=== PATIENT | male | born 2000 | race Caucasian/White ===

== ENCOUNTER 2023-12-15 17:04 | Emergency (ER) | payer SELFPAY ==
[2023-12-15 17:05] VITALS: BP 121/82; PULSE 88; RESP 16; TEMP 36.4; O2SAT 100; BMI 20.5
--- NOTE | 2023-12-15 17:24 | EX.ED.DYSGE1 ---
HPI History of Present Illness Chief Complaint: Wound Check Informant: patient Narrative Narrative: Patient presents for a tick bite on his right upper back. States he went hunting yesterday tween 2 PM and about 8 PM, he thinks he probably got it somewhere around 6 or 7 but he did not realize it at the time, he noted something sore this morning at his family look at a nasal live tick there, they pulled most of it off but there are parts that were not able to be removed so that is why he presents here to the ER. He states family told him to look like a baby. He is seen here around 1700. Last tetanus is unknown, but he thinks between 5 and 10 years ago. PFSH PFSH no medical history Allergy/AdvReac Type Severity Reaction Status Date / Time No Known Allergies Allergy Verified 12/15/23 17:05 ROS ROS ED Constitutional Constitutional ED: Denies chills or fever(s) Musculoskeletal Musculoskeletal: Reports back pain and other Details: Just soreness at the bite site ; Denies neck pain Integumentary Reports as per HPI; Denies rash Neurologic Neurologic: Denies headache(s), paresthesias or weakness EXAM Physical Exam Const Vital Signs: 12/15/23 17:05 Temperature 97.5 F L Temperature Source Temporal Pulse Rate 88 Respiratory Rate 16 Blood Pressure 121/82 H Blood Pressure Mean 95 Pulse Ox 100 Oxygen Delivery Method Room Air Positive well nourished and well developed Constitutional Narrative: Well-appearing in no distress General Appearance ED: well developed and NAD Back/Spine Back/Spine Narrative: Small area on the right upper back, there is barely a piece of residual tick parts present. No significant rash. No bleeding or discharge. Extremity normal to inspection Neuro oriented x3, CN's II-XII intact bilaterally, no sensory deficits noted and gait normal Motor Exam: strength 5/5 throughout MDM MDM MDM Narrative Medical decision making narrative: I remove the rest of the mouthparts from the patient. He is getting prophylactic doxycycline 200 mg since this could have been an immature tick, they can transmit Lyme in less than 36 hours. Patient was advised to screen his body for more ticks. He does not want to get a tetanus shot right now, he states he will discuss with his doctor concerning his last 1 before he gets an update. Procedures Other Procedures Procedure(s): Foreign body removal right upper back: After verbal consent from the patient, I locally prepped the area with chlorhexidine, and using forceps was able to remove the residual embedded mouthparts from the patient's back with no residual foreign material seen. No complications, tolerated well. No bleeding. Dressed with bacitracin. Discharge Plan Triage Chief Complaint: Wound Check ED Provider: Marc Dickey Dx/Rx/DC Orders Clinical Impression: Tick bite of back Instructions: ED Tick Bite, Antibiotic Treatment Primary Care Provider: NOT,DEFINED Referrals: Doctor,Your [Non-Staff] - As Needed Activity Restrictions/Additional Instructions: Check with your doctors office regarding your last tetanus shot. You should have an update if it was more than 5 years ago, and definitely if it was more than 10 years ago. Print Language: Croatian Disposition Disposition: Home, Self Care
[2023-12-15] MEDS: Doxycycline 100 MG CAPSULE 200 MG PO (17:31)
--- OUTSIDE RECORDS SUMMARY | 2023-12-15 17:33 | XMS RPT_ITS | CCD ---
Author Organization [facility] Care Team Providers Care Product Marketing Consultant Name Role Phone MESHA ROSE Primary Care Unavailable DIDURROSANGELA DO Primary Care Unavailable DIDURROSANGELA DO Attending Unavailable ROSANGELA AJ DO Admitting Unavailable EUGENIO ROBLES MD Admitting Unavailable EUGENIO ROBLES MD Primary Care Unavailable EUGENIO ROBLES MD Attending Unavailable LEMASTERSLACEY Admitting Unavailable LEMASTERSLACEY Primary Care Unavailable LEMASTERS, LACEY D Attending Unavailable CSERNYIK, MONTY DO Admitting Unavailable CSERNYIK, MONTY DO Primary Care Unavailable CSERNYIK, MONTY DO Attending Unavailable RODRIGUEZ, ANGEL C Attending Unavailable RODRIGUEZ, ANGEL C Admitting Unavailable RODRIGUEZ, ANGEL C Primary Care Unavailable Problems Active Problems Problem Classification Problem Date Documented Da te Episodic/Chronic E Codes: Unspecified (1 source) Activity, rough housing and horseplay; Translations: [Activity, rough housing and horseplay] Onset: 08-01-2023 Episodic Other non-traumatic joint disorders (2 sources) Pain in right knee; Translations: [Pain in right knee] Onset: 08-01-2023 Episodic Sprains and strains (2 sources) Other sprain of right shoulder joint, initial encounter; Translations: [Sprain of unspecified site of right knee, initial encounter] Onset: 08-01-2023 Episodic Past or Other Problems Problem Classification Problem Date Documented Da te Episodic/Chronic E Codes: Other specified and classifiable (1 source) Caught, crushed, jammed, or pinched between moving objects, initial encounter; Translations: [Caught, crushed, jammed, or pinched between moving objects, initial encounter] Onset: 11-03-2022 Episodic Fracture of upper limb (1 source) Displaced fracture of distal phalanx of right middle finger, initial encounter for open fracture; Translations: [Displaced fracture of distal phalanx of right middle finger, initial encounter for open fracture] Onset: 11-03-2022 Episodic Skin and subcutaneous tissue infections (1 source) Other specified local infections of the skin and subcutaneous tissue; Translations: [Other specified local infections of the skin and subcutaneous tissue] Onset: 11-03-2022 Episodic Superficial injury; contusion (3 sources) Contusion of right middle finger with damage to nail, initial encounter; Translations: [Contusion of right middle finger with damage to nail, initial encounter] Onset: 11-03-2022 Episodic Results Test Name Value Interpretation Reference Range Facility KNEE COMPLETE RT MIN 4 VIEWS on 08-02-2023 KNEE COMPLETE RT MIN 4 VIEWS [place] [id number] Patient: MARCELA ONEIL Phone#: : [phone] Age: 23 Gender: M Pt. Type: ER Account: [id number] Location: 05 Ordering: ROSANGELA AJ Exam Date: 08/02/2023/0:39 Family Phys: Charge Code: [id number] Physician: Lenawee Order #: [id number] Dose#: PROCEDURE: X-RAY KNEE RT COMPLETE 4 VIEWS COMPARISON: None. INDICATIONS: Trauma. FINDINGS: BONES: Normal. No significant arthropathy or acute abnormality. SOFT TISSUES: Negative. No visible soft tissue swelling. EFFUSION: None visible. OTHER: Negative. CONCLUSION: No acute disease. Dictated by: Isa Estrada MD on 08/02/2023 at 9:25 Approved by: Isa Estrada MD on 08/02/2023 at 9:27 Normal [facility] SHOULDER COMPLETE RTon 08-01 SHOULDER COMPLETE RT [place] [address] Patient: AMRCELA ONEIL Phone#: : 2000 Age: 23 Gender: M Pt. Type: ER Account: [id number] Location: 052 Ordering: ROSANGELA AJ Exam Date: 08/02/2023/0:30 Family Phys: Charge Code: [id number] Physician: Lenawee Order #: [id number] Dose#: PROCEDURE: X-RAY SHOULDER COMPLETE RT MIN 2 VIEWS COMPARISON: None. INDICATIONS: Trauma. FINDINGS: BONES: Normal. No significant arthropathy or acute abnormality. SOFT TISSUES: Negative. No visible soft tissue swelling. EFFUSION: None visible. OTHER: Negative. CONCLUSION: No acute disease. Dictated by: Isa Estrada MD on 08/02/2023 at 9:24 Approved by: Isa Estrada MD on 08/02/2023 at 9:24 Normal [facility] EMERGENCY REPORTon 4 EMERGENCY REPORT [facility] EMERGENCY ROOM REPORT NAME ACCOUNT SEX AGE ADMIT DISCHARGE PT MED. RECORD# NUMBER DATE DATE TYPE CLARICE [id number] Juan 02/28/23 02/28/23 3 MARCELA Martinez [id number] ROOM: ER DATE OF : 2000 DICTATING PHYSICIAN: Angel Rodriguez CHIEF COMPLAINT: Finger pain. HISTORY OF PRESENT ILLNESS: The patient states in October he slammed his right middle finger in a door. He was seen in the ED and diagnosed with a fractured distal phalanx. He had a splint placed. He also had a laceration at that time. He states that he continues to have pain to the tip of the finger, and it is difficult to move his finger. He has not had fever or chills. No new injury or trauma. PAST MEDICAL HISTORY: Past medical history is negative for chronic medical problems. PAST SURGICAL HISTORY: No previous surgeries. MEDICATIONS: He takes no medications. ALLERGIES: No allergies. PHYSICAL EXAMINATION: GENERAL: This is a 23-year-old thin male alert, appropriate, and does not appear toxic. SKIN: His skin is pink, warm, and dry. EXTREMITIES: Exam is focused to the right hand. The patient has generally very thin hands and fingers. There is an appearance of a healed laceration to the distal aspect of the right third finger and nail bed, but there is no redness, ecchymosis, or drainage of any type. His finger is mildly flexed along the PIP and DIP joints. He is able to flex it fairly well, but is unable to extend it along these joints, and when I tried to extend it, he complains of moderate pain. Good neurovascular exam. No tenderness at the MCP or any other areas of the hand and fingers. DIAGNOSTIC DATA: I did repeat an x-ray, which shows a healed fracture to the distal phalanx. EMERGENCY DEPARTMENT COURSE AND TREATMENT: There is no evidence of any acute infection or other injury. DIAGNOSIS: Persistent right finger pain and limited range of motion. PLAN/DISPOSITION: He is referred to orthopedics for further evaluation and Page 1 of 2 MARCELA ONEIL Emergency Room Report MARCELA ONEIL : 2000 management. Dictated By: Angel Rodriguez MD 02/28/23 13:14 JOB #: [id number] Transcribed By: charly 02/28/23 15:11 Electronically signed by: KEMAR Rodriguez M.D. 03/05/23 07:05 Page 2 of 2 MARCELA ONEIL Emergency Room Report Normal [facility] FINGERS RTon 02-28-2023 FINGERS RT [place] [address] Patient: MARCELA ONEIL. Phone#: : 2000 Age: 23 Gender: M Pt. Type: ER Account: [id number] Location: [facility] Ordering: ANGEL RODRIGUEZ Exam Date: 02/28/2023/10:12 Family Phys: Charge Code: [id number] Physician: Lenawee Order #: [id number] Dose#: PROCEDURE: X-RAY FINGER RT MIN 2 VIEWS COMPARISON: [facility], XR, FINGERS RT, 11/03/2022, 13:27. INDICATIONS: Pain. FINDINGS: BONES: The previously identified fracture of the 3rd distal phalanx is no longer present. There is posttraumatic irregularity of the 3rd distal phalanx, consistent with posttraumatic change. SOFT TISSUES: There is irregularity at the nailbed of the 3rd distal digit, best seen on lateral view. EFFUSION: None visible. OTHER: Negative. CONCLUSION: 1. Third distal digit posttraumatic change. There has been interval healing of the fracture line. 2. Irregularity of nailbed of the 3rd distal digit Dictated by: Elissa Pino MD on 02/28/2023 at 10:59 Approved by: Elissa Pino MD on 02/28/2023 at 11:03 [facility] EMERGENCY REPORTon 3 EMERGENCY REPORT [facility] EMERGENCY ROOM REPORT NAME ACCOUNT SEX AGE ADMIT DISCHARGE PT MED. RECORD# NUMBER DATE DATE RICH ONEIL [id number] Juan 11/03/22 11/03/22 Bc Martinez [id number] ROOM: ER DATE OF : 2000 DICTATING PHYSICIAN: Monty Rangel CHIEF COMPLAINT/HISTORY OF PRESENT ILLNESS: This is a 22-year-old male here with right 3rd finger injury. He says he injured it 3 or 4 weeks ago when he slammed it in the door. He says they called 911. The 911 came out and they wrapped up his finger and he did not follow up. He says his last tetanus is unknown. He is right hand dominant. He denies any fever or chills. He denies any other associated injury or complaint other than the right third fingertip. PAST MEDICAL HISTORY: Denied. PAST SURGICAL HISTORY: Denied. ALLERGIES: Patient denies any medication allergies. FAMILY HISTORY: Denied. SOCIAL HISTORY: No tobacco use. No alcohol use. No drug use. Immunizations are not up-to-date. He is uncertain when his last tetanus was. We will update that today. REVIEW OF SYSTEMS: A complete review of systems is otherwise negative except as noted above. PHYSICAL EXAMINATION: VITAL SIGNS: Stable. He is afebrile. He is nontoxic. HEART: Regular rate and rhythm. LUNGS: Clear to auscultation. ABDOMEN: Soft, nontender. EXTREMITIES: Right upper extremity reveals long bones to be atraumatic. He has a crush injury to the distal fingertip of the right 3rd digit. There was a dense subungual hematoma of the right third fingernail. There is a healing laceration over the volar aspect of the right third fingertip. He could flex and extend the finger. Sensation is grossly intact. There was no pain on palpation of the middle phalanx or proximal phalanx of the 3rd digit. DIAGNOSTIC DATA: X-ray examination of the right third finger reveals a tuft fracture of the distal 3rd fingertip. EMERGENCY DEPARTMENT COURSE AND TREATMENT: I did share x-rays and pictures of the wound with Dr[facility] via texting. The nail of the right 3rd finger will be removed secondary to the subungual hematoma. The finger was Page 1 of 2 MARCELA ONEIL Emergency Room Report MARCELA ONEIL : 2000 anesthetized with 1% lidocaine locally at the base of the finger. The fingernail was then removed without difficulty. There is no fingernail bed laceration that I can appreciate. There is a healing laceration over the volar aspect of the distal right 3rd finger. There is no pus draining from the wound. We will not repair that at this time as this wound is 3 to 4 weeks old. A Xeroform dressing is applied to the right 3rd fingertip and a splint is placed. The patient is put on both Keflex 500 mg q.i.d. x10 days and Bactrim DS 1 p.o. b.i.d. x10 days. Ibuprofen as needed for pain. Patient is instructed to call and follow up with [facility], Dr. Oviedo later this week. He is instructed to call Saturday for an appointment. Patient verbalized understanding. The patient's tetanus was updated today with a Tdap. DIAGNOSES: 1. Open fracture right 3rd fingertip. 2. Nail removal from 3rd finger. 3. Subungual hematoma. 4. Possible right 3rd fingertip infection. PLAN/DISPOSITION: Patient is discharged home in improved and stable condition. Dictated By: Monty Rangel DO 11/03/22 16:45 JOB #: [id number] Transcribed By: inderjit 11/04/22 12:38 Electronically signed by: Dr. Monty Rangel DO 11/29/22 19:35 Page 2 of 2 MARCELA ONEIL Emergency Room Report Normal [facility] EMERGENCY REPORTon 3 EMERGENCY REPORT [facility] EMERGENCY ROOM REPORT NAME ACCOUNT SEX AGE ADMIT DISCHARGE PT MED. RECORD# NUMBER DATE DATE TYPE CLARICE [id number] Juan 22 11/03/22 11/03/22 3 MARCELA Martinez [id number] ROOM: ER DATE OF : 2000 DICTATING PHYSICIAN: Neri Urbina ADDENDUM: DIAGNOSTIC DATA: The patient had an x-ray discrepancy suspicious for osteomyelitis involving the tuft of the long finger. PLAN/DISPOSITION: I did discuss this with Dr. Oviedo because according to the note with Dr. Rangel they did talk. The patient was placed on antibiotics of Keflex and Bactrim. He is going to see Dr. Oviedo this week. I also talked to the patient about this, and the patient has not gotten his antibiotics filled. He said he is hopefully going to get them filled tomorrow. He did talk to the pharmacist. He is going to call Dr. Oviedo for an appointment. In discussion with Dr. Oviedo, it sounds like he has a very severe infection of the finger and may lose the finger. The patient was strongly encouraged to get his antibiotics filled, and followup with Dr. Oviedo. Dictated By: Neri Urbina DO 11/05/22 19:52 JOB #: [id number] Transcribed By: am 11/06/22 07:37 Electronically signed by: KEMAR Urbina DO 11/11/22 17:39 Page 1 of 1 MARCELA ONEIL Emergency Room Report Normal [facility] FINGERS RTon 11-03-2022 FINGERS RT [place] [address] Patient: CLARICE MARCELA Juan. Phone#: : 2000 Age: 22 Gender: M Pt. Type: ER Account: [id number] Location: [facility] Ordering: MONTY RANGEL Exam Date: 11/03/2022/13:27 Family Phys: Charge Code: [id number] Physician: Lenawee Order #: [id number] Dose#: PROCEDURE: X-RAY FINGER RT MIN 2 VIEWS COMPARISON: None. INDICATIONS: Injury FINDINGS: BONES: There is cortical disruption of the distal tuft the long finger. Erosive changes are present laterally at the tuft suspicious for osteomyelitis. There does appear to be avulsion at the tuft. SOFT TISSUES: Negative. No visible soft tissue swelling. EFFUSION: None visible. OTHER: Negative. CONCLUSION: 1. Findings suspicious for osteomyelitis involving the tuft of the long finger. Dictated by: Isa Estrada MD on 11/04/2022 at 8:42 Approved by: Isa Estrada MD on 11/04/2022 at 8:49 Normal [facility] EMERGENCY REPORTon 3 EMERGENCY REPORT [facility] EMERGENCY ROOM REPORT NAME ACCOUNT SEX AGE ADMIT DISCHARGE PT MED. RECORD# NUMBER DATE DATE RICH ONEIL [id number] Juan 09/14/22 09/14/22 3 MARCELA Martinez [id number] ROOM: ER DATE OF : 2000 DICTATING PHYSICIAN: Bashir Isabel CHIEF COMPLAINT/HISTORY OF PRESENT ILLNESS: This is a 22-year-old male with no family doctor, who comes to the emergency room. He is seen in room #5 for neck pain on the right side. He states when he turns his nose to the left, he does not have any pain. When he turns his nose to the right, he has pain. He denies any trauma. He woke up with this. It is insidious in onset, five days. He has taken no medicines for this. He has never had this in the past. He has no radiation to his arms, no sore throat, no cough, no congestion, no nausea, vomiting or diarrhea, no abdominal pain, eating well, no urinary symptoms. He states he is not a diabetic. He denies any cardiac disease. He is seen in the presence of his . SOCIAL HISTORY: He does not smoke. No alcohol use. PHYSICAL EXAMINATION: He appears in no distress, but he has palpable discomfort to the right paravertebral muscles of the cervical spine. His temperature is 98, 112/72 blood pressure, 97% saturations on room air, 80 pulse, 16 respirations. Head is normocephalic. Neck: Supple. Chin to chest is normal. It is uncomfortable for him to turn his nose to the right. He has tenderness and a little spasm in the muscle along the paravertebral muscles, particularly about the level of C2-C3. There is no rash. Pharynx is symmetrical without any stridor, hoarseness or injection. He denies a sore throat. Pupils are equal, round, reactive, 3 mm. Tympanic membranes, canals, pinnae normal. He has no nystagmus. He has no anterior, posterior or supraclavicular nodes. Lungs: Clear. There is no expiratory wheeze, rales, paradoxical chest motion. He ventilates equal bilaterally. Heart: Rate and rhythm are regular without gallop. PMI left chest. Good radial and dorsalis pedis pulses. Abdomen: Soft, nontender. Bowel sounds are normal. Skin: Warm and dry. He is not an overweight individual. DIAGNOSTIC DATA: C-spine x-ray read by the emergency room physician shows no fracture, dislocation, or bony abnormality, no lytic areas. Alignment is well-maintained. EMERGENCY DEPARTMENT COURSE AND TREATMENT: I told him we would obtain x-rays, give him some medications and see how he does here. So we gave him Tramadol 50 p.o., ketorolac 60 mg IM, prednisone 40 p.o. With the medications, he actually felt better. DIAGNOSIS: Torticollis, cervical strain, right. Page 1 of 2 MARCELA ONEIL Emergency Room Report MARCELA ONEIL : 2000 PLAN/DISPOSITION: He left work today to come here, so we gave him a work excuse for today, and then I put him on Flexeril, gave him a couple Tramadol to go. I told him to use ibuprofen 800, Flexeril for home, steroids for home, and consider help from a chiropractor. I also gave him the [facility] for family doctor follow-up. Return as needed. He is ambulatory at discharge and appears to be improved. Dictated By: Bashir Isabel DO 09/15/22 04:34 JOB #: [id number] Transcribed By: ew 09/15/22 20:46 Electronically signed by: E-SIGN BASHIR ISABEL DO 09/28/22 18:01 Page 2 of 2 MARCELA ONEIL Emergency Room Report Normal [facility] CERVICAL SP COMPLETE, 4 OR 5 VIEWSon 09-14-2022 CERVICAL SP COMPLETE, 4 OR 5 VIEWS [place] [address] Patient: MARCELA ONEIL. Phone#: : 2000 Age: 22 Gender: M Pt. Type: ER Account: [id number] Location: [facility] Ordering: LACEY ALEJO Exam Date: 09/14/2022/19:44 Family Phys: Charge Code: [id number] Physician: Lenawee Order #: [id number] Dose#: PROCEDURE: X-RAY CERVICAL SPINE W/ AP, LATERAL, ODONTOID, AND OLBIQUES VIEWS COMPARISON: None. INDICATIONS: Mobility changes. FINDINGS: BONES: Normal. No significant spondylosis, scoliosis, fracture, or visible bony lesion. DISC SPACES: Normal. No significant disc height narrowing, subluxation, or endplate abnormality. PARASPINOUS: Negative. No paraspinous abnormality is seen. OTHER: Negative. CONCLUSION: No acute disease. Dictated by: Isa Estrada MD on 09/16/2022 at 23:43 Approved by: Isa Estrada MD on 09/16/2022 at 23:44 Normal [facility] EKGon 11-06-2021 Electrocardiogram Ventricular Rate : 61 BPM Atrial Rate : 61 BPM P-R Interval : 180 ms QRS Duration : 98 ms Q-T Interval : 388 ms QTC Calculation(Bazett) : 390 ms Calculated P [place] : 19 degrees Calculated R [place] : 55 degrees Calculated T [place] : 65 degrees NORMAL SINUS RHYTHM NONSPECIFIC ST AND T WAVE ABNORMALITY ABNORMAL ECG confirmed Confirmed by DO REID RYAN ([id number]), advertising editor ISHAN MONTEJO ([id number]) on 11/06/2021 3:05:12 PM NAME : MARCELA ONEIL PID : [id number] : 2000 Gender : Male Race : Unknown ORD : Procedure Date : Nov 05 2021 22:14:56 Edit Date : Nov 06 2021 15:05:13 Diagnosis: NORMAL SINUS RHYTHM NONSPECIFIC ST AND T WAVE ABNORMALITY ABNORMAL ECG confirmed Confirmed by DO REID RYAN ([id number]), advertising editor ISHAN MONTEJO ([id number]) on 11/06/2021 3:05:12 PM Test Reason : Location : 80 : EMERG Overread By : DO REID RYAN Edited By : ISHAN MONTEJO Referred By : , [facility] : [facility] Office Visit (CAW[facility]) MARCELA ONEIL ([id number]) [birth year] M Date Time Provider Department 5/28/19 9:00 AM [facility] During your visit today, we recorded the following information about you: SAMAN Hardin 07/15/2018 9:44 AM Signed Preliminary report complete; results under cardiac tab. SAMAN Hardin Referring Provider: MESHA ROSE [[id number]] Allergies As of Date: 07/15/2018 (No Known Allergies) Date Reviewed: 06/27/2018 Reviewed by: Mesha Rose - Fully Assessed Reason for Visit: Chest Pain [21] Primary Visit Diagnosis:Chest pain, unspecified type [R07.9] Prescriptions as of 07/15/2018 Sig: PERFLUTREN LIPID MICROSPHERES* Inject 1.3 mL intravenously a* CLONIDINE HCL 0.2 MG TABLET Take 1/2-1 tab 1 hr before be* Problem List As Of Date 07/15/2018 Noted Resolved ADD (attention deficit disorder) [F98.8] More... Well adolescent visit [Z00.129] INVALID FOR* More... Sleep disturbance [G47.9] INVALID FOR* Incomplete RBBB [I45.10] INVALID FOR* Encounter Status:Closed by Romel KEARNS on 07/15/18 [facility] PROGRESSon 07-15-2018 Protein mass conc HNO ID: [id number] Author: Romel Mcarthur (Rcep) Service: ? Author Type: Jira Administrator Type: Progress Notes Filed: 07/15/2018 9:44 AM Note Text: Preliminary report complete; results under cardiac tab. SAMAN Hadrin [facility] CNCOon 06-27-2018 CNCO Letter Text [facility] CNOVon 06-27-2018 CNOV Office Visit (FAMPWS) MARCELA ONEIL ([id number]) [birth year] M Date Time Provider Department 06/27/18 4:00 PM MESHA ROSE During your visit today, we recorded the following information about you: Pulse Respiration Blood pressure Weight 56/minute 12/minute 94/62 62.6 kg Mesha Rose MD 06/27/2018 10:51 PM Signed Chief Complaint Patient presents with: Chest Pain: intermediate HPI Marcela Oneil is a 18 year old male who presents here today for above complaint. Received TE the other day from mother: Mother calling for Pt who has been having intermittent CP for several months and seen in the ED 2 times. Pt was told probably anxiety. Last episode was several days ago. Pt wondering if there is some medications that would help prevent these attacks. Conferenced to (Crystal) for scheduling with PCP. . Patient with no know Hx of anxiety or depression. Mom with Hx of anxiety. Only family Hx of heart disease was MGM around the age of 50. Patient not a smoker. Chest pain is typically on the left chest wall. Will come on during rest or activity. If stops what he is doing it does not always make it better. No shortness of breath, no radiation of pain, diaphoresis or nausea. Heart rate is increased sometimes. No syncope. When he gets the chest pain he can not say he feels more anxious or more stressed. No sever feelings of doom. Has had palpitations when he was not having chest pain. Past medical history, appointments, medications, allergies reviewed. No changes. ROS: Pertinent positives/ negatives: see HPI PHYSICAL EXAMINATION BP 94/62 Pulse (!) 56 Resp 12 Wt 62.6 kg (138 lb) General appearance: Well appearing, alert, in no acute distress, well-hydrated, well nourished. Eyes: Anicteric sclera. Pupils are equally round and reactive to light. Extraocular movements are intact. Neck: Supple, no adenopathy; thyroid symmetric, normal size, no bruits Lungs: lungs clear to auscultation. No wheezing, rhonchi, rales Heart: RRR without murmur, gallop, or rubs. No ectopy Abdomen: Normal abdominal exam, Abdomen soft, non-tender. Bowel sounds normal. No masses, organomegaly Peripheral pulses: Normal Neuro: Gait normal. No gross deficits. Ext: no leg edema Data reviewed In Office EKG showed NSR with incomplete RBBB without ST or T wave changes Bonny's Anxiety score: 29 (boarderline anxiety) Cabrera's depression score: 10 (normal) A/P ASSESSMENT/PLAN: 1. Atypical chest pain - ICD9: 786.59, ICD10: R07.89 (primary diagnosis) Check - ECHO - PERFLUTREN LIPID MICROSPHERES 1.1 MG/ML INTRAVENOUS SUSPENSION - STRESS REGULAR W/TREAD 2. Incomplete RBBB - ICD9: 426.4, ICD10: I45.10 Check - ECHO - PERFLUTREN LIPID MICROSPHERES 1.1 MG/ML INTRAVENOUS SUSPENSION - STRESS REGULAR W/TREAD If above w/u negative will have Marcela start Zoloft at 25 mg ad ay and f/u in 8 weeks to see how he is doing. If palpitations persist may need event monitor. Mesha Rose MD Referring Provider: SELF [[id number]] Allergies As of Date: 06/27/2018 (No Known Allergies) Date Reviewed: 06/27/2018 Reviewed by: Mesha Rose - Fully Assessed Reason for Visit: Chest Pain [21] Cmt: intermediate Primary Visit Diagnosis:Atypical chest pain [R07.89] Other Visit Diagnosis:Incomplete RBBB [I45.10] Order(s):ECG COMPLETE [ECG01] Order #: [id number] FUTURE ECHO [743719] Order #: [id number]: 1 FUTURE perflutren lipid microspheres (DEFINITY) 1.1 mg/mL injection (to be provided with echo procedure)Inject 1.3 mL intravenously as directed.Disp: 1.3 mLRfl: 0 STRESS REGULAR W/TREAD [8413840] Order #: [id number]: 1 Prescriptions as of 06/27/2018 Sig: CLONIDINE HCL 0.2 MG TABLET Take 1/2-1 tab 1 hr before be* PERFLUTREN LIPID MICROSPHERES* Inject 1.3 mL intravenously a* Problem List As Of Date 06/27/2018 Noted Resolved ADD (attention deficit disorder) [F98.8] More... Well adolescent visit [Z00.129] INVALID FOR* More... Sleep disturbance [G47.9] INVALID FOR* Incomplete RBBB [I45.10] INVALID FOR* Prescriptions ordered this encounter Disp Refills Start End PERFLUTREN LIPID MICROSPHERES 1.1 MG* 1.3 * 0 06/27/2018 06/27/2019 Class: In Office Route: INTRAVENOUS Sig: Inject 1.3 mL intravenously as directed. Disposition: Return if symptoms worsen or fail to improve. Follow-up and Disposition History Recorded Encounter Status:Closed by MESHA ROSE on 06/27/18 Normal [facility] ECG COMPLETEon 06-27-2018 ECG COMPLETE NAME : MARCELA ONEIL PID : [id number] : 2000 Gender : Male Race : ORD : [id number] Procedure Date : Jun 27 2018 16:30:14 Edit Date : Jul 22 2018 16:03:14 Diagnosis:NORMAL SINUS RHYTHM INCOMPLETE RIGHT BUNDLE BRANCH BLOCK BORDERLINE ECG Confirmed by MD JACOBS GREGORY () on 07/22/2018 4:02:58 PM Ventricular Rate : 71 BPM Atrial Rate : 71 BPM P-R Interval : 152 ms QRS Duration : 104 ms Q-T Interval : 368 ms QTC Calculation(Bezet) : 399 ms P [place] : 36 degrees R [place] : 36 degrees T [place] : 58 degrees Test Reason : Location : 185 : [facility] Overread By : MD JACOBS GREGORY Edited By : MD JACOBS GREGORY Referred By : MESHA ROSE Acquired by : Olesya CUELLAR [facility] PROGRESSon 06-27-2018 Protein mass conc HNO ID: [id number] Author: Mesha Rose Service: ? Author Type: Physician Type: Progress Notes Filed: 06/27/2018 10:51 PM Note Text: Chief Complaint Patient presents with: Chest Pain: intermediate HPI Marcela Oneil is a 18 year old male who presents here today for above complaint. Received TE the other day from mother: Mother calling for Pt who has been having intermittent CP for several months and seen in the ED 2 times. Pt was told probably anxiety. Last episode was several days ago. Pt wondering if there is some medications that would help prevent these attacks. Conferenced to (Crystal) for scheduling with PCP. . Patient with no know Hx of anxiety or depression. Mom with Hx of anxiety. Only family Hx of heart disease was MGM around the age of 50. Patient not a smoker. Chest pain is typically on the left chest wall. Will come on during rest or activity. If stops what he is doing it does not always make it better. No shortness of breath, no radiation of pain, diaphoresis or nausea. Heart rate is increased sometimes. No syncope. When he gets the chest pain he can not say he feels more anxious or more stressed. No sever feelings of doom. Has had palpitations when he was not having chest pain. Past medical history, appointments, medications, allergies reviewed. No changes. ROS: Pertinent positives/ negatives: see HPI PHYSICAL EXAMINATION BP 94/62 Pulse (!) 56 Resp 12 Wt 62.6 kg (138 lb) General appearance: Well appearing, alert, in no acute distress, well-hydrated, well nourished. Eyes: Anicteric sclera. Pupils are equally round and reactive to light. Extraocular movements are intact. Neck: Supple, no adenopathy; thyroid symmetric, normal size, no bruits Lungs: lungs clear to auscultation. No wheezing, rhonchi, rales Heart: RRR without murmur, gallop, or rubs. No ectopy Abdomen: Normal abdominal exam, Abdomen soft, non-tender. Bowel sounds normal. No masses, organomegaly Peripheral pulses: Normal Neuro: Gait normal. No gross deficits. Ext: no leg edema Data reviewed In Office EKG showed NSR with incomplete RBBB without ST or T wave changes Bonny's Anxiety score: 29 (boarderline anxiety) Cabrera's depression score: 10 (normal) A/P ASSESSMENT/PLAN: 1. Atypical chest pain - ICD9: 786.59, ICD10: R07.89 (primary diagnosis) Check - ECHO - PERFLUTREN LIPID MICROSPHERES 1.1 MG/ML INTRAVENOUS SUSPENSION - STRESS REGULAR W/TREAD 2. Incomplete RBBB - ICD9: 426.4, ICD10: I45.10 Check - ECHO - PERFLUTREN LIPID MICROSPHERES 1.1 MG/ML INTRAVENOUS SUSPENSION - STRESS REGULAR W/TREAD If above w/u negative will have Marcela start Zoloft at 25 mg ad ay and f/u in 8 weeks to see how he is doing. If palpitations persist may need event monitor. Mesha Rose MD Normal [facility] CNOVon 04-08-2018 CNOV Office Visit (FAMPWS) MARCELA ONEIL ([id number]) 1 M Date Time Provider Department 04/08/18 1:40 PM MESHA ROSE During your visit today, we recorded the following information about you: Pulse Respiration Blood pressure Weight 68/minute 14/minute 104/70 62.6 kg Mesha Rose MD 04/08/2018 2:04 PM Signed Chief Complaint Patient presents with: Recheck: 5 month sleep disturbance HPI Marcela Oneil is a 18 year old male who presents here today for Above Complaints.. Patient with Hx of sleep disturbance and ADD. Still not having issues with his ADD. Was doing fine with the clonidine 0.1 mg tab before bed up until 2-3 weeks ago and now he's back to where he just can't fall asleep. No new life stressors. Denies excessive worrying and no feeling of being depressed. Past medical history, appointments, medications, allergies reviewed. Previous Medical History PAST MEDICAL HISTORY Diagnosis Date - ADD (attention deficit disorder) - Sleep disturbance 10/05/2017 Previous Surgical History PAST SURGICAL HISTORY Procedure Laterality Date - NONE Family History FAMILY HISTORY Problem Relation Age of Onset - Hypertension Maternal Grandmother - Coronary Artery Disease Maternal Grandmother 50 Patient Allergies ALLERGIES No Known Allergies Current Medications Current Outpatient Prescriptions on File Prior to Visit: cloNIDine HCl (CATAPRES) 0.1 mg tablet Take 1/2-1 tab 1 hr before bed each night. No current facility-administere d medications on file prior to visit. Social History Social History Marital status: Single Spouse name: Years of education: Number of children: Social History Main Topics Smoking status: Never Smoker Smokeless tobacco: Never Used Alcohol use: No Drug use: No Sexual activity: No Review of Symptoms REVIEW OF SYSTEMS See HPI EXAM: BP 104/70 Pulse 68 Resp 14 Wt 62.6 kg (138 lb) Last 6 Encounter BP Readings: Date: BP: 04/08/2018 104/70 11/04/2017 110/72 10/05/2017 108/74 06/03/2017 84/62 07/27/2016 112/70 General Appearance: Well appearing, alert, in no acute distress, well-hydrated, well nourished.. Eyes: Anicteric sclera. Pupils are equally round. Extraocular movements are intact. . Neck: Supple, no adenopathy; thyroid symmetric, normal size, no bruits. Lungs: lungs clear to auscultation. No wheezing, rhonchi, rales. Heart: RRR without murmur, gallop, or rubs. No ectopy. Abdomen: Normal abdominal exam, Abdomen soft, non-tender. Bowel sounds normal. No masses, organomegaly. Psych: Normal mood and affect. Makes eye contact. Health Maintenance List DTAP,TDAP,TD(1 - Tdap) due on 01/20/2007 HPV VACCINE(1 - Male 3-dose series) due on 01/20/2011 PHQ-A due on 07/27/2017 INFLUENZA Completed MENINGOCOCCAL CONJUGATE Completed Data reviewed A/P ASSESSMENT/PLAN: 1. Attention deficit disorder, unspecified hyperactivity presence - ICD9: 314.00, ICD10: F98.8 (primary diagnosis) - No active issues will monitor 2. Sleep disturbance - ICD9: 780.50, ICD10: G47.9 Will increase to - CLONIDINE HCL 0.2 MG TABLET before bed. Patient to give me an update in 3-4 weeks. Also discussed if doing well for a month can try tapering back to 1/2 a tab before bed. Signed Prescriptions Disp Refills cloNIDine HCl (CATAPRES) 0.2 mg tablet 30 tablet 5 Sig: Take 1/2-1 tab 1 hr before bed each night. MAXWELL: No F/u 6 months WAE sooner if issues MD Mesha Jeffries MD 04/08/2018 1:59 PM Signed Patient to give Dr. Rose an update in 3-4 weeks. Also discussed if doing well for a month can try tapering back to 1/2 a tab before bed. Referring Provider: MESHA ROSE [[id number]] Allergies As of Date: 04/08/2018 (No Known Allergies) Date Reviewed: 04/08/2018 Reviewed by: Mesha Rose - Fully Assessed Reason for Visit: Recheck [92] Cmt: 5 month sleep disturbance Primary Visit Diagnosis:Attention deficit disorder, unspecified hyperactivity presence [F98.8] Other Visit Diagnosis:Sleep disturbance [G47.9] Order(s):cloNIDine HCl (CATAPRES) 0.2 mg tabletTake 1/2-1 tab 1 hr before bed each night.Disp: 30 tabletRfl: 5 Prescriptions as of 04/08/2018 Sig: CLONIDINE HCL 0.2 MG TABLET Take 1/2-1 tab 1 hr before be* Problem List As Of Date 04/08/2018 Noted Resolved ADD (attention deficit disorder) [F98.8] More... Well adolescent visit [Z00.129] INVALID FOR* More... Sleep disturbance [G47.9] INVALID FOR* Other instructions from your clinician: Patient to give Dr. Rose an update in 3-4 weeks. Also discussed if doing well for a month can try tapering back to 1/2 a tab before bed. Prescriptions ordered this encounter Disp Refills Start End CLONIDINE HCL 0.2 MG TABLET 30 t* 5 04/08/2018 Sig: Take 1/2-1 tab 1 hr before bed each night. Medications Discontinued During This Encounter cloNIDine HCl (CATAPRES) 0.1 mg tabl* 30 t* 5 10/05/2017 04/08/2018 Sig: Take 1/2-1 tab 1 hr before bed each night. Disc: Reason for discontinue is not on file. Disposition: Return in about 6 months (around 10/06/2018) for complete PE. Follow-up and Disposition History Recorded Encounter Status:Closed by MESHA ROSE on 04/08/18 Normal [facility] PROGRESSon 04-08-2018 Protein mass conc HNO ID: [id number] Author: Mesha Rose Service: (none) Author Type: Physician Type: Progress Notes Filed: 04/08/2018 2:04 PM Note Text: Chief Complaint Patient presents with: Recheck: 5 month sleep disturbance HPI Marcela Oneil is a 18 year old male who presents here today for Above Complaints.. Patient with Hx of sleep disturbance and ADD. Still not having issues with his ADD. Was doing fine with the clonidine 0.1 mg tab before bed up until 2-3 weeks ago and now he's back to where he just can't fall asleep. No new life stressors. Denies excessive worrying and no feeling of being depressed. Past medical history, appointments, medications, allergies reviewed. Previous Medical History PAST MEDICAL HISTORY Diagnosis Date - ADD (attention deficit disorder) - Sleep disturbance 10/05/2017 Previous Surgical History PAST SURGICAL HISTORY Procedure Laterality Date - NONE Family History FAMILY HISTORY Problem Relation Age of Onset - Hypertension Maternal Grandmother - Coronary Artery Disease Maternal Grandmother 50 Patient Allergies ALLERGIES No Known Allergies Current Medications Current Outpatient Prescriptions on File Prior to Visit: cloNIDine HCl (CATAPRES) 0.1 mg tablet Take 1/2-1 tab 1 hr before bed each night. No current facility-administere d medications on file prior to visit. Social History Social History Marital status: Single Spouse name: Years of education: Number of children: Social History Main Topics Smoking status: Never Smoker Smokeless tobacco: Never Used Alcohol use: No Drug use: No Sexual activity: No Review of Symptoms REVIEW OF SYSTEMS See HPI EXAM: BP 104/70 Pulse 68 Resp 14 Wt 62.6 kg (138 lb) Last 6 Encounter BP Readings: Date: BP: 04/08/2018 104/70 11/04/2017 110/72 10/05/2017 108/74 06/03/2017 84/62 07/27/2016 112/70 General Appearance: Well appearing, alert, in no acute distress, well-hydrated, well nourished.. Eyes: Anicteric sclera. Pupils are equally round. Extraocular movements are intact. . Neck: Supple, no adenopathy; thyroid symmetric, normal size, no bruits. Lungs: lungs clear to auscultation. No wheezing, rhonchi, rales. Heart: RRR without murmur, gallop, or rubs. No ectopy. Abdomen: Normal abdominal exam, Abdomen soft, non-tender. Bowel sounds normal. No masses, organomegaly. Psych: Normal mood and affect. Makes eye contact. Health Maintenance List DTAP,TDAP,TD(1 - Tdap) due on 01/20/2007 HPV VACCINE(1 - Male 3-dose series) due on 01/20/2011 PHQ-A due on 07/27/2017 INFLUENZA Completed MENINGOCOCCAL CONJUGATE Completed Data reviewed A/P ASSESSMENT/PLAN: 1. Attention deficit disorder, unspecified hyperactivity presence - ICD9: 314.00, ICD10: F98.8 (primary diagnosis) - No active issues will monitor 2. Sleep disturbance - ICD9: 780.50, ICD10: G47.9 Will increase to - CLONIDINE HCL 0.2 MG TABLET before bed. Patient to give me an update in 3-4 weeks. Also discussed if doing well for a month can try tapering back to 1/2 a tab before bed. Signed Prescriptions Disp Refills cloNIDine HCl (CATAPRES) 0.2 mg tablet 30 tablet 5 Sig: Take 1/2-1 tab 1 hr before bed each night. MAXWELL: No F/u 6 months WAE sooner if issues Mesha Rose MD [facility] CNOVon 11-04-2017 CNOV Office Visit (FAMPWS) MARCELA ONEIL ([id number]) 1 M Date Time Provider Department 11/04/17 1:20 PM [facility] During your visit today, we recorded the following information about you: Temperature Pulse Respiration Blood pressure 98.2 degrees 88/minute 16/minute 110/72 Weight 61.6 kg Mesha Rose MD 11/04/2017 5:28 PM Signed Chief Complaint Patient presents with: 4 week f/u: sleep issues HPI Marcela Oneil is a 17 year old male who presents here today for Above Complaints.. Since last appt has been taking the Clonidine nightly before bed. Has noticed marked improvement and feels it works 90-95 % of the time. Still has the occasional night it's harder to fall asleep. No lightheadedness, dizziness or fatigue the next day. Past medical history, appointments, medications, allergies reviewed. Previous Medical History PAST MEDICAL HISTORY Diagnosis Date - ADD (attention deficit disorder) - Sleep disturbance 10/05/2017 Previous Surgical History PAST SURGICAL HISTORY Procedure Laterality Date - NONE Family History FAMILY HISTORY Problem Relation Age of Onset - Hypertension Maternal Grandmother - Coronary Artery Disease Maternal Grandmother 50 Patient Allergies ALLERGIES No Known Allergies Current Medications Current Outpatient Prescriptions on File Prior to Visit: cloNIDine HCl (CATAPRES) 0.1 mg tablet Take 1/2-1 tab 1 hr before bed each night. No current facility-administere d medications on file prior to visit. Social History Social History Marital status: Single Spouse name: Years of education: Number of children: Social History Main Topics Smoking status: Never Smoker Smokeless tobacco: Never Used Alcohol use: No Drug use: No Sexual activity: No Review of Symptoms REVIEW OF SYSTEMS See HPI EXAM: BP 110/72 Pulse 88 Temp 36.8 ?C (98.2 ?F) (Tympanic) Resp 16 Wt 61.6 kg (135 lb 12.8 oz) General Appearance: Well appearing, alert, in no acute distress, well-hydrated, well nourished.. Lungs: Lungs clear to auscultation. No wheezing, rhonchi, rales. Heart: RRR without murmur, gallop, or rubs. No ectopy. Extremities: No deformities, edema . Abdomen: normal on exam Health Maintenance List HEPATITIS B(1 of 3 - 3-dose primary series) due on 2000 POLIO(1 of 4 - All-IPV series) due on 2000 MMR(1 of 2 - Standard series) due on 01/20/2001 DTAP,TDAP,TD(1 - Tdap) due on 01/20/2007 HPV VACCINE(1 - Male 3-dose series) due on 01/20/2011 VARICELLA(1 of 2 - 2-dose adolescent series) due on 01/20/2013 INFLUENZA(1) due on 10/19/2017 MENINGOCOCCAL CONJUGATE Completed Data reviewed A/P ASSESSMENT/PLAN: 1. Sleep disturbance - ICD9: 780.50, ICD10: G47.9 - At this time will cont the clonidine at 0.1 mg before bed. F/u 5 months routine. Mesha Rose MD Referring Provider: MESHA ROSE [[id number]] Allergies As of Date: 11/04/2017 (No Known Allergies) Date Reviewed: 11/04/2017 Reviewed by: Mesha Rose - Fully Assessed Reason for Visit: 4 week f/u [Other] Cmt: sleep issues Primary Visit Diagnosis:Sleep disturbance [G47.9] Prescriptions as of 11/04/2017 Sig: CLONIDINE HCL 0.1 MG TABLET Take 1/2-1 tab 1 hr before be* Problem List As Of Date 11/04/2017 Noted Resolved ADD (attention deficit disorder) [F98.8] Priority: A More... Well adolescent visit [Z00.129] INVALID FOR* Priority: E More... Sleep disturbance [G47.9] INVALID FOR* Priority: B Disposition: Return in about 5 months (around 04/06/2018) for chas. Follow-up and Disposition History Recorded Encounter Status:Closed by MESHA ROSE on 11/04/17 Normal [facility] PROGRESSon 11-04-2017 Protein mass conc HNO ID: [id number] Author: Mesha Rose Service: (none) Author Type: Physician Type: Progress Notes Filed: 11/04/2017 5:28 PM Note Text: Chief Complaint Patient presents with: 4 week f/u: sleep issues HPI Marcela Oneil is a 17 year old male who presents here today for Above Complaints.. Since last appt has been taking the Clonidine nightly before bed. Has noticed marked improvement and feels it works 90-95 % of the time. Still has the occasional night it's harder to fall asleep. No lightheadedness, dizziness or fatigue the next day. Past medical history, appointments, medications, allergies reviewed. Previous Medical History PAST MEDICAL HISTORY Diagnosis Date - ADD (attention deficit disorder) - Sleep disturbance 10/05/2017 Previous Surgical History PAST SURGICAL HISTORY Procedure Laterality Date - NONE Family History FAMILY HISTORY Problem Relation Age of Onset - Hypertension Maternal Grandmother - Coronary Artery Disease Maternal Grandmother 50 Patient Allergies ALLERGIES No Known Allergies Current Medications Current Outpatient Prescriptions on File Prior to Visit: cloNIDine HCl (CATAPRES) 0.1 mg tablet Take 1/2-1 tab 1 hr before bed each night. No current facility-administere d medications on file prior to visit. Social History Social History Marital status: Single Spouse name: Years of education: Number of children: Social History Main Topics Smoking status: Never Smoker Smokeless tobacco: Never Used Alcohol use: No Drug use: No Sexual activity: No Review of Symptoms REVIEW OF SYSTEMS See HPI EXAM: BP 110/72 Pulse 88 Temp 36.8 ?C (98.2 ?F) (Tympanic) Resp 16 Wt 61.6 kg (135 lb 12.8 oz) General Appearance: Well appearing, alert, in no acute distress, well-hydrated, well nourished.. Lungs: Lungs clear to auscultation. No wheezing, rhonchi, rales. Heart: RRR without murmur, gallop, or rubs. No ectopy. Extremities: No deformities, edema . Abdomen: normal on exam Health Maintenance List HEPATITIS B(1 of 3 - 3-dose primary series) due on 2000 POLIO(1 of 4 - All-IPV series) due on 2000 MMR(1 of 2 - Standard series) due on 01/20/2001 DTAP,TDAP,TD(1 - Tdap) due on 01/20/2007 HPV VACCINE(1 - Male 3-dose series) due on 01/20/2011 VARICELLA(1 of 2 - 2-dose adolescent series) due on 01/20/2013 INFLUENZA(1) due on 10/19/2017 MENINGOCOCCAL CONJUGATE Completed Data reviewed A/P ASSESSMENT/PLAN: 1. Sleep disturbance - ICD9: 780.50, ICD10: G47.9 - At this time will cont the clonidine at 0.1 mg before bed. F/u 5 months routine. Mesha Rose MD [facility] CNOVon 10-05-2017 CNOV Office Visit (FAMPWS) MARCELA ONEIL ([id number]) 1 M Date Time Provider Department 10/05/17 8:20 AM MESHA ROSEPWS During your visit today, we recorded the following information about you: Pulse Respiration Blood pressure Weight 68/minute 12/minute 108/74 60.3 kg Height 1.765 m Mesha Rose MD 10/05/2017 10:35 AM Signed Chief Complaint Patient presents with: Well Child HPI Marcela M Clarice is a 17 year old male who presents here today for transfer of care.. Patient with a Hx of ADD bit has not needed medication since freshman year of high school. Has been doing well. Past medical history, appointments, medications, allergies reviewed. Previous Medical History PAST MEDICAL HISTORY Diagnosis Date - ADD (attention deficit disorder) Previous Surgical History PAST SURGICAL HISTORY Procedure Laterality Date - NONE Family History FAMILY HISTORY Problem Relation Age of Onset - Hypertension Maternal Grandmother Patient Allergies ALLERGIES No Known Allergies Current Medications No current outpatient prescriptions on file prior to visit. No current facility-administere d medications on file prior to visit. Social History Social History Marital status: Single Spouse name: Years of education: Number of children: Social History Main Topics Smoking status: Never Smoker Smokeless tobacco: Never Used Review of Symptoms REVIEW OF SYSTEMS GENERAL: No weight loss, malaise or fevers HEENT: Negative for frequent or significant headaches, significant change in vision, significant vision problems, significant ear problems or hearing loss, nasal discharge, or nose bleeds, sore throat, difficulty swallowing, mouth lesions, hoarseness NECK: Negative for lumps, goiter, pain and significant neck swelling RESPIRATORY: Negative for cough, hemoptysis, wheezing, COPD, dyspnea or shortness of breath CARDIOVASCULAR: Negative for chest pain, leg swelling, hypertension, CHF or palpitations. Has an occasional chest pain related to a cartilage issus. GI: No nausea, vomiting, or diarrhea and no pain or blood : No history of dysuria, frequency or blood MUSCULOSKELETAL: Negative for joint pain or swelling, back pain or muscle pain SKIN: Negative for lesions, rash, and itching PSYCH: Negative for mood disorder and recent psychosocial stressors. Has been having issues with falling asleep. Once he falls asleep will stay asleep. Mom took his PS4 out of the room last year to see if helped but no improvement. Does not drink caffeinated beverages on a regular basis. Mom also tried melatonin with no benefit. Mom does not see him as an anxious child. But has had some issues with anger. Most the time when he cant fall asleep it's a matter of he just cant get his mind to shut off. HEMATOLOGY/LYMPHOLOG Y: Negative for prolonged bleeding, bruising easily or swollen nodes ENDOCRINE: Negative for cold or heat intolerance, polyuria, polydipsia and goiter NEURO: No history of headaches, syncope, paralysis, seizures or tremors EXAM: BP 108/74 (BP Site: Left Arm, BP Position: Sitting, BP Cuff Size: Regular Adult) Pulse 68 Resp 12 Ht 176.5 cm (5' 9.5 ) Wt 60.3 kg (133 lb) BMI 19.36 kg/m? General Appearance: Well appearing, alert, in no acute distress, well-hydrated, well nourished. and Thin. Skin: Skin color, texture, turgor normal, no suspicious rashes or lesions. Head: Normocephalic, no masses, lesions, tenderness or abnormalities. Eyes: Anicteric sclera. Pupils are equally round and reactive to light. Extraocular movements are intact. . Ears: External ears normal, canals clear. Nose/Sinuses: Nares normal, septum midline, mucosa normal, no drainage or sinus tenderness. Oropharynx: Lips, mucosa, and tongue normal, teeth and gums normal, oropharynx normal. Neck: Supple, no adenopathy; thyroid symmetric, normal size, no bruits. Lungs: Lungs clear to auscultation. No wheezing, rhonchi, rales. Heart: RRR without murmur, gallop, or rubs. No ectopy. Abdomen: Normal abdominal exam, Abdomen soft, non-tender. Bowel sounds normal. No masses, organomegaly. Extremities: No deformities, edema, skin discoloration,. Musculoskeletal: No joint swelling, deformity, or tenderness. Peripheral Pulses: Normal. Neurologic: Gait normal. Reflexes normal and symmetric. Sensation to light touch and crainal nerves 2-12 intact.. Genitalia: Normal. Health Maintenance List HEPATITIS B(1 of 3 - 3-dose primary series) due on 2000 POLIO(1 of 4 - All-IPV series) due on 2000 MMR(1 of 2 - Standard series) due on 01/20/2001 DTAP,TDAP,TD(1 - Tdap) due on 01/20/2007 HPV VACCINE(1 of 3 - Male 3-dose series) due on 01/20/2011 VARICELLA(1 of 2 - 2-dose adolescent series) due on 01/20/2013 MENINGOCOCCAL CONJUGATE(1 of 1 - 2-dose series) due on 2016 INFLUENZA(1) due on 10/19/2017 Data reviewed Growth chart was ok. Bonny's Anxiety score: 15 (normal) Child and adolescent Depression Scale: score: 6 (normal) A/P ASSESSMENT/PLAN: 1. Well adolescent visit - ICD9: V20.2, ICD10: Z00.129 (primary diagnosis) - Developmentally good. 2. Attention deficit disorder, unspecified hyperactivity presence - ICD9: 314.00, ICD10: F98.8 - Not needing mediaction 3. Sleep disturbance - ICD9: 780.50, ICD10: G47.9 - Will try CLONIDINE HCL 0.1 MG TABLET 1/2-1 tab before bed. Check - TSH BLD - T4 FREE/FREE THYROX 4. Encounter for immunization - ICD9: V03.89, ICD10: Z23 - MENINGOCOCCAL CONJUGATE [id number], IM Signed Prescriptions Disp Refills cloNIDine HCl (CATAPRES) 0.1 mg tablet 30 tablet 5 Sig: Take 1/2-1 tab 1 hr before bed each night. F/u in 4-6 weeks for sleep issues and possibly start the gardisel series. MD Kiana Jeffries Ma 10/05/2017 8:31 AM Signed Vision: Left: 2070 Right: Referring Provider: SELF [[id number]] Allergies As of Date: 10/05/2017 (No Known Allergies) Date Reviewed: 10/05/2017 Reviewed by: Mesha Rose - Fully Assessed Reason for Visit: Well Child [122] Primary Visit Diagnosis:Well adolescent visit [Z00.129] Comment:last done:10/05/2017 Other Visit Diagnoses:Attention deficit disorder, unspecified hyperactivity presence [F98.8] Sleep disturbance [G47.9] Encounter for immunization [Z23] Order(s):MENINGOCOCC AL CONJUGATE [id number], IM [[id number]] Order #: [id number] cloNIDine HCl (CATAPRES) 0.1 mg tabletTake 1/2-1 tab 1 hr before bed each night.Disp: 30 tabletRfl: 5 TSH BLD [SQTSH] Order #: [id number] FUTURE T4 FREE/FREE THYROX [SQFT4] Order #: [id number] FUTURE Prescriptions as of 10/05/2017 Sig: CLONIDINE HCL 0.1 MG TABLET Take 1/2-1 tab 1 hr before be* Problem List As Of Date 10/05/2017 Noted Resolved ADD (attention deficit disorder) [F98.8] More... Well adolescent visit [Z00.129] INVALID FOR* More... Sleep disturbance [G47.9] INVALID FOR* Visit Notes: >> Kiana Ivy Ma Sat Oct 05, 2017 8:30 AM Status: Signed Vision: Left: 2070 Right: Prescriptions ordered this encounter Disp Refills Start End CLONIDINE HCL 0.1 MG TABLET 30 t* 5 10/05/2017 Sig: Take 1/2-1 tab 1 hr before bed each night. Disposition: Return for 4-6 weeks f/u sleep issues and possible gardisel. Follow-up and Disposition History Recorded Encounter Status:Closed by MESHA ROSE on 10/05/17 Normal [facility] Free T4on 10-05-2017 T4 free mass conc 1.3 ng/dL Normal 0.8-2.8 [facility] Comment on above: Performed By: #### T , FT4 #### [facility] [place] [facility] [address] [place], [place] [address] PROGRESSon 10-05-2017 Protein mass conc HNO ID: [id number] Author: Mesha Rose Service: (none) Author Type: Physician Type: Progress Notes Filed: 10/05/2017 10:35 AM Note Text: Chief Complaint Patient presents with: Well Child HPI Marcela Oneil is a 17 year old male who presents here today for transfer of care.. Patient with a Hx of ADD bit has not needed medication since freshman year of high school. Has been doing well. Past medical history, appointments, medications, allergies reviewed. Previous Medical History PAST MEDICAL HISTORY Diagnosis Date - ADD (attention deficit disorder) Previous Surgical History PAST SURGICAL HISTORY Procedure Laterality Date - NONE Family History FAMILY HISTORY Problem Relation Age of Onset - Hypertension Maternal Grandmother Patient Allergies ALLERGIES No Known Allergies Current Medications No current outpatient prescriptions on file prior to visit. No current facility-administere d medications on file prior to visit. Social History Social History Marital status: Single Spouse name: Years of education: Number of children: Social History Main Topics Smoking status: Never Smoker Smokeless tobacco: Never Used Review of Symptoms REVIEW OF SYSTEMS GENERAL: No weight loss, malaise or fevers HEENT: Negative for frequent or significant headaches, significant change in vision, significant vision problems, significant ear problems or hearing loss, nasal discharge, or nose bleeds, sore throat, difficulty swallowing, mouth lesions, hoarseness NECK: Negative for lumps, goiter, pain and significant neck swelling RESPIRATORY: Negative for cough, hemoptysis, wheezing, COPD, dyspnea or shortness of breath CARDIOVASCULAR: Negative for chest pain, leg swelling, hypertension, CHF or palpitations. Has an occasional chest pain related to a cartilage issus. GI: No nausea, vomiting, or diarrhea and no pain or blood : No history of dysuria, frequency or blood MUSCULOSKELETAL: Negative for joint pain or swelling, back pain or muscle pain SKIN: Negative for lesions, rash, and itching PSYCH: Negative for mood disorder and recent psychosocial stressors. Has been having issues with falling asleep. Once he falls asleep will stay asleep. Mom took his PS4 out of the room last year to see if helped but no improvement. Does not drink caffeinated beverages on a regular basis. Mom also tried melatonin with no benefit. Mom does not see him as an anxious child. But has had some issues with anger. Most the time when he cant fall asleep it's a matter of he just cant get his mind to shut off. HEMATOLOGY/LYMPHOLOG Y: Negative for prolonged bleeding, bruising easily or swollen nodes ENDOCRINE: Negative for cold or heat intolerance, polyuria, polydipsia and goiter NEURO: No history of headaches, syncope, paralysis, seizures or tremors EXAM: BP 108/74 (BP Site: Left Arm, BP Position: Sitting, BP Cuff Size: Regular Adult) Pulse 68 Resp 12 Ht 176.5 cm (5' 9.5 ) Wt 60.3 kg (133 lb) BMI 19.36 kg/m? General Appearance: Well appearing, alert, in no acute distress, well-hydrated, well nourished. and Thin. Skin: Skin color, texture, turgor normal, no suspicious rashes or lesions. Head: Normocephalic, no masses, lesions, tenderness or abnormalities. Eyes: Anicteric sclera. Pupils are equally round and reactive to light. Extraocular movements are intact. . Ears: External ears normal, canals clear. Nose/Sinuses: Nares normal, septum midline, mucosa normal, no drainage or sinus tenderness. Oropharynx: Lips, mucosa, and tongue normal, teeth and gums normal, oropharynx normal. Neck: Supple, no adenopathy; thyroid symmetric, normal size, no bruits. Lungs: Lungs clear to auscultation. No wheezing, rhonchi, rales. Heart: RRR without murmur, gallop, or rubs. No ectopy. Abdomen: Normal abdominal exam, Abdomen soft, non-tender. Bowel sounds normal. No masses, organomegaly. Extremities: No deformities, edema, skin discoloration,. Musculoskeletal: No joint swelling, deformity, or tenderness. Peripheral Pulses: Normal. Neurologic: Gait normal. Reflexes normal and symmetric. Sensation to light touch and crainal nerves 2-12 intact.. Genitalia: Normal. Health Maintenance List HEPATITIS B(1 of 3 - 3-dose primary series) due on 2000 POLIO(1 of 4 - All-IPV series) due on 2000 MMR(1 of 2 - Standard series) due on 01/20/2001 DTAP,TDAP,TD(1 - Tdap) due on 01/20/2007 HPV VACCINE(1 of 3 - Male 3-dose series) due on 01/20/2011 VARICELLA(1 of 2 - 2-dose adolescent series) due on 01/20/2013 MENINGOCOCCAL CONJUGATE(1 of 1 - 2-dose series) due on 2016 INFLUENZA(1) due on 10/19/2017 Data reviewed Growth chart was ok. Bonny's Anxiety score: 15 (normal) Child and adolescent Depression Scale: score: 6 (normal) A/P ASSESSMENT/PLAN: 1. Well adolescent visit - ICD9: V20.2, ICD10: Z00.129 (primary diagnosis) - Developmentally good. 2. Attention deficit disorder, unspecified hyperactivity presence - ICD9: 314.00, ICD10: F98.8 - Not needing mediaction 3. Sleep disturbance - ICD9: 780.50, ICD10: G47.9 - Will try CLONIDINE HCL 0.1 MG TABLET 1/2-1 tab before bed. Check - TSH BLD - T4 FREE/FREE THYROX 4. Encounter for immunization - ICD9: V03.89, ICD10: Z23 - MENINGOCOCCAL CONJUGATE [id number], IM Signed Prescriptions Disp Refills cloNIDine HCl (CATAPRES) 0.1 mg tablet 30 tablet 5 Sig: Take 1/2-1 tab 1 hr before bed each night. F/u in 4-6 weeks for sleep issues and possibly start the gardisel series. Mesha Rose MD Normal [facility] TSHon 10-05-2017 Thyrotropin Qn 2.600 uU/mL Normal 0.600-5.400 [facility] Replaced By [facility] Comment on above: Result Comment: Refe rence ranges were not locally established for pediatric patients. The normal values are based on the following source: Krishna V, Robinson BP, Faby IM, et al. Pediatric reference intervals for 28 chemistries and immunoassays on the Sol riddhi 6000 analyzer - A CALIPER furniture finisher study. Clinical Biochemistry. 2010:43:6576-5816. Performed By: #### T , FT4 #### [facility] [place] [facility] [address] [id number] Encounters Encounter Date Encounter Type Care Provider Facility Start: 08-14-2023 End: 08-14-2023 Emergency department patient visit EUGENIO ROBLES [facility] Start: 08-01-2023 End: 08-02-2023 Emergency department patient visit ROSANGELA LOAIZA [facility] Start: 02-28-2023 End: 02-28-2023 Emergency department patient visit ANGEL RODRIGUEZ [facility] Start: 11-03-2022 End: 11-03-2022 Emergency department patient visit MONTY GILLIS [facility] Start: 09-14-2022 End: 09-14-2022 Emergency department patient visit LACEY ALEJO [facility] Start: 11-06-2021 End: 11-06-2021 Emergency department patient visit MESHA ROSE Facility:[facility] Payers Date Payer Category Payer Medicaid [id number] Summary Purpose Family History No Family History Records FoundNo Family History Records FoundNo Family History Records Found Advance Directives No Advanced Directives Records FoundNo Advanced Directives Records FoundNo Advanced Directives Records Found Additional Source Comments (unrecognized sect ion and content) No Status Records FoundNo Status Records FoundNo Status Records Found INFORMATION SOURCE (unrecogn ized section and content) DATE CREATED AUTHOR 07/27/2018 [facility] DATE CREATED AUTHOR AUTHOR'S ORGANIZ ATION 11/18/2021 [facility] DATE CREATED AUTHOR AUTHOR'S ORGANIZ ATION 08/16/2023 [facility] FOR RECORDS PERTAINING TO PATIENTS WHO ARE OR HAVE BEEN ENROLLED IN A CHEMICAL DEPENDENCY/SUBSTANCEABUSE PROGRAM, SOME INFORMATION MAY BE OMITTED. This clinical summary was aggregated from multiple sources. Caution should be exercised in using it in the provision of clinical care. This summary normalizes information from multiple sources, and as a consequence, information in this document may materially change the coding, format and clinical context of patient data. In addition, data may be omitted in some cases. CLINICAL DECISIONS SHOULD BE BASED ON THE PRIMARY CLINICAL RECORDS. [place] [facility]. provides no warranty or guarantee of the accuracy or completeness of information in this document.
== END 2023-12-15 17:42 | disposition home or self-care (01) ==
LOC: ED 17:32
PROVIDERS: Emergency Provider Emergency Medicine; Visit Provider Emergency Medicine
DX: S20.461A Insect bite (nonvenomous) of right back wall of thorax, initial encounter (principal); W57.XXXA Bitten or stung by nonvenomous insect and other nonvenomous arthropods, initial encounter
CPT/HCPCS: 99282

== ENCOUNTER 2024-11-02 16:05 | Emergency (ER) | payer SELFPAY ==
[2024-11-02 16:06] VITALS: BP 128/67; PULSE 107; RESP 18; TEMP 37.1; O2SAT 97; BMI 21.2
--- NOTE | 2024-11-02 16:48 | RAD_ITS ---
PROCEDURE: CHEST PA AND LATERAL 11/02/2024 REASON FOR EXAM: COUGH TECHNIQUE: Procedure Code: RADCXR Modality: DX Procedure: CHEST PA AND LATERAL FINDINGS: The heart is normal in size. The lungs are clear. No acute osseous abnormalities. RAD/Chest PA and Lateral IMPRESSION: NO ACUTE FINDINGS. Reading Location: [id number]
--- NOTE | 2024-11-02 16:48 | EKG12_ITS ---
Test Reason : ARRYTH Blood Pressure : */* mmHG Vent. Rate : 80 BPM Atrial Rate : 80 BPM P-R Int : 168 ms QRS Dur : 104 ms QT Int : 352 ms P-R-T Axes : 38 8 57 degrees QTcB Int : 405 ms Normal sinus rhythm Incomplete right bundle branch block Borderline ECG Confirmed by Mihir Orellana ([id number]), index editor DAVID BURK ([id number]) on 11/03/2024 12:01:01 PM Referred By: Confirmed By: Mihir Orellana
--- NOTE | 2024-11-02 16:49 | EX.ED.VIS.UR ---
HPI HPI - URI History of Present Illness Chief Complaint: Cough Narrative Narrative: Patient is a 24-year-old male presenting to the emergency department for a cough and congestion. Patient has no significant past medical history. He states for the past 2 weeks he has congestion and today started to have a dry cough. Reports that he was eating a sandwich and took 2 bites and felt like he had something stuck in his throat. He is been able to tolerate food and drink since. Has been able to tolerate his secretions. Has been breathing okay. No shortness of breath. He denies any fever, chills, sore throat, abdominal pain, nausea, vomiting, diarrhea. He has never had any issues with his esophagus in the past, no history of EGD. His work would like him tested for COVID which is why he was sent in. ROS ROS ED ROS Narrative see HPI PFSH PFSH Medical History no medical history Home Medications ?Medication ?Instructions ?Recorded ?Last Taken ?Type NK 11/02/24 Unknown History Allergy/AdvReac Type Severity Reaction Status Date / Time No Known Allergies Allergy Verified 11/02/24 16:06 Family History no significant family his Surgical History no surgical history Social History Smoking Status: Never smoker EXAM Physical Exam Narrative Exam Narrative: Vital signs: Reviewed General: Alert and oriented x 3. No acute distress HEENT: Head is normocephalic and atraumatic, sinuses nontender, pupils equal round and reactive. Nares are patent. Oropharynx and throat exams normal. No erythema, swelling. Tolerating secretions without difficulty. No voice change. Neck: Supple without lymphadenopathy nontender Cardiovascular: Regular rate and rhythm, no murmurs. No rubs or gallops. Normal S1 and S2 Respiratory: Clear to auscultation bilaterally. No wheezes, rales, rhonchi. No distress. Abdominal: Soft and nontender. Normal bowel sounds. No guarding or rebound. Nonsurgical abdomen Extremities: No tenderness. No bruising. Normal range of motion. Normal sensation. Skin: No rash or redness. The rest of the physical exam is unremarkable Const Vital Signs: 11/02/24 16:06 11/02/24 16:27 11/02/24 17:38 Temperature 98.7 F 98.4 F Temperature Source Temporal Oral Pulse Rate 107 H 78 Respiratory Rate 18 18 Respiratory Effort Normal Respiratory Depth Normal Respiratory Pattern Normal Blood Pressure 128/67 H 102/71 Blood Pressure Mean 87 81 Pulse Ox 97 99 Oxygen Delivery Method Room Air Room Air 11/02/24 18:41 Temperature 98.4 F Temperature Source Pulse Rate 78 Respiratory Rate 18 Respiratory Effort Respiratory Depth Respiratory Pattern Blood Pressure 102/71 Blood Pressure Mean 81 Pulse Ox 99 Oxygen Delivery Method MDM MDM MDM Narrative Medical decision making narrative: Patient is a 24-year-old male presenting emergency department for congestion and cough. Patient was seen and examined. Vitals are stable. Patient resting bed comfortably no acute distress. Viral swab ordered. Chest x-ray and EKG ordered. Will p.o. challenge here. Viral swab negative for COVID, flu and RSV. Chest x-ray reviewed by myself, no opacities, pneumothorax or widened mediastinum. Radiology read with no acute radiographic abnormalities. Patient tolerated p.o. here. No evidence of esophageal or airway obstruction. Recommended supportive care at home for likely viral illness. I did provide GI follow-up if he continues to have a sensation of something stuck in his throat to follow-up with and possibly have an EGD done. Instructed return with any difficulty breathing, swallowing, inability to tolerate secretions. Patient agreeable to plan. Patient discharged from the Emergency Department. I do not feel that the patient's evaluation reveals any acute reason for admission at this time. I instructed them to either follow-up with their primary care physician or promptly return to the Emergency Department for reevaluation should symptoms worsen or new symptoms develop. I explained what symptoms would indicate the need to return to the emergency department. Shared decision making was used. The patient voiced understanding of the treatment plan and is agreeable with it. Clinical impression Cough Viral illness History & Record Review Discussion w/independent historian: Patient Radiography Chest X-Ray - ED: 2 View, Read by ED Physician, Normal, No Acute Disease and No Infiltrates Diagnostic Testing: Clinical Impression(s) from Imaging Studies Chest X-Ray 11/02/24 16:48 IMPRESSION: NO ACUTE FINDINGS. Reading Location: [facility] Discharge Plan Triage Chief Complaint: Cough ED Provider: Pearl Bean Dx/Rx/DC Orders Clinical Impression: URI (upper respiratory infection), Foreign body sensation in throat Instructions: Adult Self-Care for Colds Prescriptions: No Action NK Stand Alone Forms: Work / School Excuse Primary Care Provider: Care Physician,No Primary Referrals: Morena Alexandre MD [Med Staff - Facility Administrator] - 2 Days Friend,DO Kameron [Med Staff - Active Staff] - 1 Week if not improving (If foreign body sensation does not improve) Care Physician,No Primary [Primary Care Provider] - Activity Restrictions/Additional Instructions: Your evaluation in the Emergency Department did not reveal any acute reason for admission. However, I want to emphasize that you may be early in the course of a disease process or illness even if it is not present. For this reason you should follow-up within 24 hours for reevaluation with either your primary care physician or if necessary back here in the Emergency Department. You should return to the Emergency Department immediately if your symptoms worsen or new symptoms develop. Print Language: Afghan Disposition Disposition: Home, Self Care Discharge Date/Time: 11/02/24 18:43
[2024-11-02 17:38] VITALS: BP 102/71; PULSE 78; RESP 18; TEMP 36.9; O2SAT 99
[2024-11-02 18:41] VITALS: BP 102/71; PULSE 78; RESP 18; TEMP 36.9; O2SAT 99
== END 2024-11-02 18:43 | disposition home or self-care (01) ==
PROVIDERS: Emergency Provider Student in an Organized Health Care Education/Training Program; Visit Provider Student in an Organized Health Care Education/Training Program
DX: J06.9 Acute upper respiratory infection, unspecified (principal); R09.A2 Foreign body sensation, throat; B34.9 Viral infection, unspecified
CPT/HCPCS: 71046; 87631; 93005; 99282